=== PATIENT | male | born 1985 | race Caucasian/White ===

== ENCOUNTER → 2019-03-22 | Outpatient (CLI) | payer BC ==
--- NOTE | 2019-03-22 13:07 | Diagnostic Imaging Report ---
Exam: Chest radiograph Clinical History: Abnormal chest x-ray Comparison: None available Findings: There is no evidence of pulmonary consolidation, pleural effusion, or pneumothorax. Punctate calcific density structures are noted throughout bilateral lungs which may represent granulomatous disease. The cardiac size is within normal limits. The regional osseous structures are unremarkable. Signed by: Dr. Je Thakkar MD on 03/22/2019 1:04 PM
== END ==
LOC: RAD 12:00
PROVIDERS: ATTEND Family Medicine
DX: R91.8 Other nonspecific abnormal finding of lung field (principal)
CPT/HCPCS: 71046